=== PATIENT | male | born 1965 | race American Indian/Alaskan Native ===

== ENCOUNTER 2019-08-14 13:22 | Emergency (ER) | payer SELFPAY ==
[2019-08-14] MEDS ORDERED: LORazepam 2 MG/ML VIAL IV STA (13:25)
[2019-08-14] MEDS ORDERED: SODIUM CHLORIDE 0.9% 1000 ML 1,000 ML IV ONE (13:26)
--- NOTE | 2019-08-14 13:26 | Emergency Department Report ---
HPI - General Time Seen by Provider: 08/14/19 13:25 - HPI HPI: 54 YO MALE COMES IN TO ER TODAY WITH HIS FRIEND- WHO WAS IN CARDIAC ARREST, AND . MR VO WAS ANXIOUS, HYPERVENTILATING AND STATING HE COULD NOT BREATH. REBREATHING INTO BAG HELPED PT. PMH NONE RX NONE PSH RECENT BACK [facility] ED Past Medical Hx - Past Medical History Previous Medical History?: No - Surgical History Past Surgical History?: Yes Additional Surgical History: BACK SURGERY - Family History Family history: other (FATHER DEC CORONARY DISEASE AND MOTHER OF SAH) - Social History Smoking Status: Current Every Day Smoker Substance Use Type: Alcohol, Marijuana ED Review of Systems ROS: Stated complaint: CANDY Other details as noted in HPI Comment: All other systems reviewed and negative ED Medical Decision Making - Lab Data Result diagrams: 08/14/19 13:40 08/14/19 13:40 - EKG Data -: EKG Interpreted by Me EKG shows normal: sinus rhythm Rate: normal - EKG Data When compared to previous EKG there are: no significant change Interpretation: no acute changes - Medical Decision Making Vital Signs 08/14/19 08/14/19 08/14/19 13:18 13:30 13:41 Temperature 98.4 F Pulse Rate 93 H 94 H Respiratory 16 14 Rate Blood Pressure 109/67 109/67 O2 Sat by Pulse 88 96 96 Oximetry Labs 08/14/19 08/14/19 13:40 13:40 WBC 8.7 RBC 4.82 Hgb 16.4 H Hct 48.1 H MCV 100 H MCH 34 H MCHC 34 RDW 13.3 Plt Count 202 Lymph % (Auto) 13.3 L [place] % (Auto) 6.6 Eos % (Auto) 0.6 Baso % (Auto) 0.1 Lymph # 1.2 [place] # 0.6 Eos # 0.0 Baso # 0.0 Seg Neutrophils % 79.4 H Seg Neutrophils # 6.9 Sodium 138 Potassium 3.1 L Chloride 101.7 Carbon Dioxide 20 L Anion Gap 19 BUN 13 Creatinine 1.2 Estimated GFR > 60 BUN/Creatinine Ratio 11 Glucose 101 H Calcium 8.7 Troponin T < 0.010 1L NS ATIVAN 1 MG IV FAMILY CALLED TO BEDSIDE PT INFORMED OF PASSING OF HIS FRIEND WITH THE SUPPORT OF HIS FAMILY HE DID OK WITH THE NEWS MONITORED IN ER NO FURTHER ANXIETY ATTACKS DC HOME WITH FAMILY AND DC PLAN OF CARE. BEING DC HOME WITH AND FAMILY. - Differential Diagnosis GRIEF RESPONSE Critical care attestation.: If time is entered above; I have spent that time in minutes in the direct care of this critically ill patient, excluding procedure time. ED Disposition Clinical Impression: Grief reaction, Anxiety attack Disposition: DC-01 TO HOME OR SELFCARE Is pt being admited?: No Does the pt Need Aspirin: No Condition: Stable Instructions: Grief and Loss (ED) Referrals: PRIMARY CARE, [Primary Care Provider] - 3-5 Days [facility] [Outside] - 3-5 Days [facility] [Outside] - 3-5 Days Time of Disposition: 14:32 ED Psych EXAM - General General appearance: alert Limitations: No Limitations - Head Head exam: Positive: normocephalic - Eye Eye exam: normal appearance, PERRL - ENT ENT exam: Positive: normal exam - Respiratory Respiratory exam: Positive: normal lung sounds bilaterally - Cardiovascular Cardiovascular Exam: Positive: regular rate, tachycardia - GI/Abdominal GI/Abdominal exam: Positive: soft, normal bowel sounds - Extremities Extremities exam: Positive: normal inspection - Back Back exam: normal inspection - Neurological Neurological exam: Positive: alert, oriented X3, CN II-XII intact, normal gait - Psychiatric Psychiatric Exam: Positive: Anxious - Skin Skin exam: Positive: warm, dry
[2019-08-14 14:01] LABS: Basophils % (Auto) 0.1 % (0.0-1.8); Eosinophils % (Auto) 0.6 % (0.0-4.3); Hematocrit 48.1 % (35.5-45.6); Hemoglobin 16.4 gm/dl (11.8-15.2); Lymphocytes # (Auto) 1.2 K/mm3 (1.2-5.4); Lymphocytes % (Auto) 13.3 % (13.4-35.0); Mean Corpuscular HGB Conc 34 % (32-34); Mean Corpuscular Volume 100 fl (84-94); Monocytes # (Auto) 0.6 K/mm3 (0.0-0.8); Monocytes % (Auto) 6.6 % (0.0-7.3); Platelet Count 202 K/mm3 (140-440); Red Blood Count 4.82 M/mm3 (3.65-5.03); Red Cell Distribution Width 13.3 % (13.2-15.2)
[2019-08-14 14:22] LABS: BUN/Creatinine Ratio 11; Blood Urea Nitrogen 13 mg/dL (9-20); Calcium 8.7 mg/dL (8.4-10.2); Hemolysis Index 9
[2019-08-14] MEDS ORDERED: POTASSIUM CHLORIDE ER 20 MEQ TAB PO ONE ×2 (14:24→17:00)
[2019-08-14 14:58] VITALS: BP 107/61
== END 2019-08-14 14:58 | disposition home or self-care (01) ==
LOC: ED 13:22
DX: F41.9 Anxiety disorder, unspecified (principal); F17.200 Nicotine dependence, unspecified, uncomplicated; F12.10 Cannabis abuse, uncomplicated; Z98.890 Other specified postprocedural states; Z91.041 Radiographic dye allergy status
CPT/HCPCS: 36415; 80048; 84484; 85025; 96374; 99284; J2060; J7030